=== PATIENT | male | born 1955 | race Hispanic/Latino ===

== ENCOUNTER 2024-03-09 09:41 | Outpatient (CLI) | payer OTHER | END 2024-03-09 09:42 | disposition home or self-care (01) | LOC: CSHCT 09:41 | PROVIDERS: ATTEND Urology | DX: R31.29 Other microscopic hematuria (principal); N39.0 Urinary tract infection, site not specified; N28.1 Cyst of kidney, acquired; D17.5 Benign lipomatous neoplasm of intra-abdominal organs; Z87.448 Personal history of other diseases of urinary system | CPT/HCPCS: 36415; 74178; 82565 ==

== ENCOUNTER 2025-01-16 12:18 | Outpatient (CLI) | payer OTHER | END 2025-01-16 12:19 | disposition home or self-care (01) | LOC: CSHULT 12:18 | PROVIDERS: ATTEND Urology | DX: N28.1 Cyst of kidney, acquired (principal); D17.71 Benign lipomatous neoplasm of kidney | CPT/HCPCS: 76770 ==